=== PATIENT | female | born 1985 | race Caucasian/White ===

== ENCOUNTER 2020-08-15 07:55 | Inpatient (IN) ==
[2020-08-15] MEDS ORDERED: OXYTOCIN 30 UNITS/500 ML BAG IV PRN ×3 (08:06→23:12)
[2020-08-15 08:27] LABS: Hematocrit (blood only) 36.6 % (37-47); Hemoglobin 12.4 g/dL (12.0-16.0); Mean Corpuscular Hemoglobin 31.4 pg (25-34); Mean Corpuscular Hgb Conc 33.9 g/dL (32-36); Mean Corpuscular Volume 92.7 fL (80-100); Mean Platelet Volume 11.3 fL (7.4-10.4); Platelet Count 236 K/uL (130-400); RDW Coefficient of Variation 12.8 % (11.5-14.5); RDW Standard Deviation 43.3 fL (36.4-46.3); Red Blood Count 3.95 M/uL (4.2-5.4); White Blood Count 10.02 K/uL (4.8-10.8)
[2020-08-15] MEDS: LACTATED RINGER'S 1,000 ML IV PRN ×3 (09:25→18:34)
--- NOTE | 2020-08-15 09:43 | History & Physical Report ---
Date of Service August 15, 2020 Assessment & Plan (1) : 34 y/o at 40 2/7 wga presenting for post-EDC IOL Initial bp slightly elevated but pt is very anxious. Denies s/s PET. Will continue to monitor Fetus cat 1 Labor - boykin bulb was removed on admission, will start pitocin. Plan arom when able GBS neg Epidural PRN COVID neg Admission and Anticipated Discharge Date Admission Date: August 15, 2020 History of Present Illness Chief Complaint: IOL Primary Care Provider: NO PCP 34 y/o at 40 2/7 wga w/ JEROME 08/13 by LMP 11/06 who presents for post-EDC IOL. +FM and irreg non-painful ctx, denies LOF. Small amount of bloody discharge from boykin bulb PNI: AMA Past [employer] Hx: G1 2018 SAB G2 current Menarche 11, q28d cycles Last pap 2019 neg cotest Denies hx STIs Allergies Allergy/AdvReac Type Severity Reaction Status Date / Time No Known Allergies Allergy Verified 08/14/20 11:53 Home Medications Medication Instructions Recorded Confirmed Type prenat.vits,joe,[id number] 1 tab PO DAILY 12/01/18 08/15/20 History loratadine 10 mg tablet 10 mg PO DAILY 07/30/20 08/15/20 History Patient History Medical History Anxiety Status post hysteroscopy Surgical History H/O oral surgery Hx of LASIK Family History Mother Kidney disease Diabetes Sister Kidney disease Denies family history of Ovarian cancer Breast cancer Colorectal cancer Social History Smoking Status: Never smoker Hx Alcohol Use: No Hx Substance Use: No Preferred Language: Cypriot Communication Ability: Effective Circuit Judge Required: No Beliefs That Will Affect Care: None marital status: marital status details: mary anne (38) [phone] Current Living Situation: Spouse Current Living Situation Comment: lives with spouse, no pets. current occupational status: employed current occupation: Professor @ [employer] Other Information That Helps Us Care for You: No Feels Safe at Home: Yes Safety Concerns: Feels Safe At This Time Assistive Devices: None Physical Exam Constitutional: WD/WN, vitals as above Respiratory: normal respiratory effort; no respiratory distress and no labored breathing Psychiatric: A+Ox3, euthymic affect Genitourinary: OB Exam Abdomen: + vertex and + estimated weight (8-9lb) Manual OB Exam: + cervical dilation (3-4cm), + cervical effacement 50% and + station -2 OB Exam Monitor Tracing: + external FHT monitor used, + external uterine monitor used (q6min) and + category I (125/mod/+accel/-decel) Results & Data ([facility]) Vital Signs (Past 12 Hours) Vital Signs Temp Pulse Resp BP 08/15/20 07:55 98.1 F 103 H 20 140/81 Laboratory Results OB Labs: Blood Type O Positive 01/03/20 Antibody Screen NEGATIVE 01/03/20 Hemoglobin 11.9 g/dL (12.0-16.0) L 05/24/20 Hematocrit 34.7 % (37-47) L 05/24/20 Mean Corpuscular Volume 92.5 fL (80-100) 01/03/20 Platelet Count 252 K/uL (130-400) 01/03/20 Rubella IgG Antibody Immune (Immune) 01/03/20 Rapid Plasma Reagin Nonreactive (Nonreactive) 01/03/20 Hepatitis B Surface Antigen Neg (Neg) 01/03/20 HIV (1&2) Ab and P24 Ag, 4th Gener Neg (Neg) 01/03/20 Glucose 1 Hour 50 gm Load 92 mg/dl (70-130) 05/24/20 Maternal Serum Alpha Fetoprotein 19.0 ng/mL 02/26/20 OB Optional Labs: Chlamydia trachomatis RNA NOT DETECTED (NOT DETECTED) 01/03/20 Neisseria gonorrhoeae RNA NOT DETECTED (NOT DETECTED) 01/03/20 Alpha Fetoprotein Triple Screen SEE NOTE 02/26/20 Labs Reviewed: CF/SMA negative 08/25/19 HK ([facility]) cfdna low risk afp neg GBS neg Diagnostic Findings Anterior placenta Code Status & VTE Plan VTE Prophylaxis Plan VTE Prophylaxis will be ordered: No Coding Level of Care Code None Diagnoses Z34.90
--- NOTE | 2020-08-15 13:41 | Labor Progress Brief Note ---
Date of Service August 15, 2020 Subjective Feeling ctx more, uncomfortable but not overly painful Assessment & Plan (1) : 34 y/o at 40 2/7 wga presenting for post-EDC IOL VSS, BPs wnl Fetus cat 1 Labor - pit at 13, now s/p arom. Continue augmentation GBS neg Epidural PRN Admission and Anticipated Discharge Date Admission Date: August 15, 2020 Physical Exam Constitutional: WD/WN, vitals as above Respiratory: normal respiratory effort; no respiratory distress and no labored breathing Psychiatric: A+Ox3, euthymic affect Genitourinary: Manual OB Exam: + cervical dilation (4-5cm), + cervical effacement 60% and + station -2 OB Exam Monitor Tracing: + external FHT monitor used, + external uterine monitor used (q2-5min) and + category I (125/mod/+accel/-decel) Results & Data ([facility]) Vital Signs (Past 12 Hours) Vital Signs Temp Pulse Pulse Resp BP BP 08/15/20 12:52 67 20 130/85 08/15/20 11:53 96.8 F L 83 20 116/57 L 08/15/20 10:40 81 129/82 08/15/20 10:26 78 16 129/85 08/15/20 10:10 86 135/87 08/15/20 09:56 75 20 127/79 08/15/20 09:39 88 128/86 08/15/20 07:55 98.1 F 103 H 20 140/81 Coding Level of Care Code None Diagnoses Z34.90
[2020-08-15] MEDS ORDERED: SODIUM CHLORIDE 0.9% INJ 10 ML VIAL ONE (14:38)
[2020-08-15] MEDS ORDERED: ePHEDrine sulfate 50 MG/ML AMP ONE (14:38)
[2020-08-15] MEDS ORDERED: fentaNYL citrate 100 MCG/2 ML VIAL ONE (14:38)
[2020-08-15] MEDS ORDERED: fentaNYL 2MCG/ML ROPIVACAINE 1.25MG/ML 100 ML BAG EPI ONE (14:39)
[2020-08-15] MEDS: BUPIVACAINE 0.25% 30 ML VIAL ONE ×2 (15:12→15:28)
--- NOTE | 2020-08-15 15:26 | Anesthesiology Consultation ---
Date of Service August 15, 2020 Assessment & Plan Chart Review Chart Review: Acceptable Risk for Labor Epidural Consults Requested none History Height/Weight Height: 5 ft 6 in Weight: 111.385 kg Allergies Allergy/AdvReac Type Severity Reaction Status Date / Time No Known Allergies Allergy Verified 08/14/20 11:53 Medications Home Medications Medication Instructions Recorded Confirmed Last Taken prenat.vits,joe,mef-[id number]-fabvx 1 tab PO DAILY 12/01/18 08/15/20 08/15/20 07:00 loratadine 10 mg tablet 10 mg PO DAILY 07/30/20 08/15/20 08/14/20 08:00 Active Medications Generic Name Dose Route Start Last Admin Trade Name Freq PRN Reason Stop Dose Admin Lactated Ringer's 1,000 mls @ 125 mls/hr 08/15/20 08:06 08/15/20 14:55 Lr IV 08/17/20 08:05 999 mls/hr .Q8H PRN Administration L&D Protocol Protocol Oxytocin 30 units in 500 mls @ 13 mls/hr 08/15/20 08:08 08/15/20 13:00 Pitocin IV 08/17/20 08:07 0.78 units/hr .Q24H PRN 13 mls/hr Labor Induction/Augmentation Titration Protocol 0.78 UNITS/HR Past Medical History Medical History Anxiety Status post hysteroscopy Past Family History Family History Mother Kidney disease Diabetes Sister Kidney disease Denies family history of Ovarian cancer Breast cancer Colorectal cancer Past Surgical History Surgical History H/O oral surgery Hx of LASIK Social History Smoking Status: Never smoker Hx Alcohol Use: No Hx Substance Use: No substance use type: does not use Physical Exam Vital Signs Last Vital Signs Temp 36.6 C 08/15/20 14:21 Pulse 67 08/15/20 15:23 Resp 20 08/15/20 14:21 BP 122/67 08/15/20 15:23 Pulse Ox 98 08/15/20 15:21 Testing Laboratory Results 08/15/20 08:13
[2020-08-15] MEDS ORDERED: NALOXONE HCL 1 MG in SODIUM CHLORIDE 0.9% 1000ML 1,000 ML IV PRN (15:27)
[2020-08-15] MEDS ORDERED: fentaNYL 2MCG/ML ROPIVACAINE 1.25MG/ML 100 ML BAG EPI PRN (15:27)
[2020-08-15] MEDS ORDERED: diphenhydrAMINE 50 MG/ML VIAL IV PRN (15:27)
[2020-08-15] MEDS ORDERED: ePHEDrine sulfate 50 MG/ML AMP IV PRN (15:27)
[2020-08-15] MEDS ORDERED: NALOXONE HCL 0.4 MG/1 ML VIAL/CARP IV PRN (15:27)
--- NOTE | 2020-08-15 17:08 | Labor Progress Brief Note ---
Date of Service August 15, 2020 Subjective Comfortable with epidural, still somewhat painful in window Assessment & Plan (1) : 34 y/o at 40 2/7 wga presenting for post-EDC IOL VSS, BPs overall wnl except after arom and just now with window and very uncomfortable. If persistent elevations, will order labs Fetus cat 1 Labor - pit at 13, good progression since arom. GBS neg Epidural in place Admission and Anticipated Discharge Date Admission Date: August 15, 2020 Physical Exam Genitourinary: Manual OB Exam: + cervical dilation 5 cm, + cervical effacement 90% and + station -1 OB Exam Monitor Tracing: + external FHT monitor used, + external uterine monitor used (q2-4min) and + category I (115/mod/+accel/-decel) Results & Data ([facility]) Vital Signs (Past 12 Hours) Vital Signs Temp Pulse Pulse Resp BP BP Pulse Ox 08/15/20 17:03 96 H 93 08/15/20 17:01 84 98 08/15/20 17:00 84 140/88 08/15/20 16:56 71 99 08/15/20 16:51 68 99 08/15/20 16:46 79 99 08/15/20 16:44 73 128/77 08/15/20 16:41 75 97 08/15/20 16:36 66 97 08/15/20 16:31 66 98 08/15/20 16:30 68 126/80 08/15/20 16:26 68 97 08/15/20 16:21 68 98 08/15/20 16:16 67 99 08/15/20 16:14 69 117/71 08/15/20 16:11 73 99 08/15/20 16:06 83 100 08/15/20 16:01 63 99 08/15/20 15:59 64 112/62 08/15/20 15:56 72 98 08/15/20 15:51 69 99 08/15/20 15:46 72 99 08/15/20 15:44 97.5 F L 68 16 114/57 L 08/15/20 15:41 82 98 08/15/20 15:36 74 99 08/15/20 15:31 81 99 08/15/20 15:27 72 121/71 08/15/20 15:26 79 98 08/15/20 15:25 68 123/67 08/15/20 15:23 67 122/67 08/15/20 15:21 66 122/69 98 08/15/20 15:19 69 122/65 08/15/20 15:17 65 121/62 08/15/20 15:16 61 98 08/15/20 15:11 79 100 08/15/20 15:06 81 100 08/15/20 15:01 75 98 08/15/20 14:21 97.9 F 20 08/15/20 13:52 96 H 140/89 08/15/20 12:52 67 20 130/85 08/15/20 11:53 96.8 F L 83 20 116/57 L 08/15/20 10:40 81 129/82 08/15/20 10:26 78 16 129/85 08/15/20 10:10 86 24 135/87 08/15/20 09:56 75 20 127/79 08/15/20 09:39 88 128/86 08/15/20 07:55 98.1 F 103 H 20 140/81 Coding Level of Care Code None Diagnoses Z34.90
--- NOTE | 2020-08-15 19:54 | Labor Progress Brief Note ---
Date of Service August 15, 2020 Subjective Overall comfortable w/ epidural, still w/ window but tolerable Assessment & Plan (1) : 34 y/o at 40 2/7 wga presenting for post-EDC IOL VSS, BPs stabilized Fetus cat 1 Labor - pit at 13, will reposition to get lip to go away, recheck in about an hour. GBS neg Epidural in place Admission and Anticipated Discharge Date Admission Date: August 15, 2020 Physical Exam Genitourinary: Manual OB Exam: + cervical dilation 9 cm, + cervical effacement 90% and + station + 1 OB Exam Monitor Tracing: + external FHT monitor used, + external uterine monitor used (q2-4min) and + category I (115/mod/+accel/-decel) Results & Data ([facility]) Vital Signs (Past 12 Hours) Vital Signs Temp Pulse Pulse Resp BP BP Pulse Ox 08/15/20 19:46 88 100 08/15/20 19:42 76 135/81 08/15/20 19:41 79 99 08/15/20 19:36 79 99 08/15/20 19:31 76 99 08/15/20 19:30 18 08/15/20 19:28 69 137/78 08/15/20 19:26 82 99 08/15/20 19:21 73 100 08/15/20 19:16 84 99 08/15/20 19:13 73 134/70 08/15/20 19:11 78 99 08/15/20 19:07 97.7 F 18 08/15/20 19:06 79 100 08/15/20 19:05 97.7 F 18 08/15/20 19:01 74 100 08/15/20 18:59 75 131/78 08/15/20 18:56 73 99 08/15/20 18:51 69 100 08/15/20 18:46 83 100 08/15/20 18:43 68 129/80 08/15/20 18:41 71 100 08/15/20 18:36 70 100 08/15/20 18:31 77 99 08/15/20 18:28 69 134/76 08/15/20 18:26 71 100 08/15/20 18:21 68 99 08/15/20 18:16 63 99 08/15/20 18:14 62 129/75 08/15/20 18:11 67 99 08/15/20 18:06 64 99 08/15/20 18:01 71 99 08/15/20 17:59 97.9 F 65 20 129/74 08/15/20 17:56 76 99 08/15/20 17:51 78 100 08/15/20 17:46 61 98 08/15/20 17:43 63 127/77 08/15/20 17:41 66 99 08/15/20 17:36 78 99 08/15/20 17:31 70 99 08/15/20 17:29 63 125/72 08/15/20 17:26 65 99 08/15/20 17:21 64 99 08/15/20 17:16 70 99 08/15/20 17:14 69 126/68 08/15/20 17:11 71 99 08/15/20 17:06 67 100 08/15/20 17:03 96 H 93 08/15/20 17:01 84 98 08/15/20 17:00 84 140/88 08/15/20 16:56 71 99 08/15/20 16:51 68 99 08/15/20 16:46 79 99 08/15/20 16:44 73 128/77 08/15/20 16:41 75 97 08/15/20 16:36 66 97 08/15/20 16:31 66 98 08/15/20 16:30 68 126/80 08/15/20 16:26 68 97 08/15/20 16:21 68 98 08/15/20 16:16 67 99 08/15/20 16:14 69 117/71 08/15/20 16:11 73 99 08/15/20 16:06 83 100 08/15/20 16:01 63 99 08/15/20 15:59 64 112/62 08/15/20 15:56 72 98 08/15/20 15:51 69 99 08/15/20 15:46 72 99 08/15/20 15:44 97.5 F L 68 16 114/57 L 08/15/20 15:41 82 98 08/15/20 15:36 74 99 08/15/20 15:31 81 99 08/15/20 15:27 72 121/71 08/15/20 15:26 79 98 08/15/20 15:25 68 123/67 08/15/20 15:23 67 122/67 08/15/20 15:21 66 122/69 98 08/15/20 15:19 69 122/65 08/15/20 15:17 65 121/62 08/15/20 15:16 61 98 08/15/20 15:11 79 100 08/15/20 15:06 81 100 08/15/20 15:01 75 98 08/15/20 14:21 97.9 F 20 08/15/20 13:52 96 H 140/89 08/15/20 12:52 67 20 130/85 08/15/20 11:53 96.8 F L 83 20 116/57 L 08/15/20 10:40 81 129/82 08/15/20 10:26 78 16 129/85 08/15/20 10:10 86 24 135/87 08/15/20 09:56 75 20 127/79 08/15/20 09:39 88 128/86 08/15/20 07:55 98.1 F 103 H 20 140/81 Coding Level of Care Code None Diagnoses Z34.90
--- NOTE | 2020-08-15 22:49 | Delivery Summary ---
Vaginal Delivery Summary Date of Service August 15, 2020 PREOPERATIVE DIAGNOSIS: 1. Single intrauterine at 40 2/7 2. Post-EDC IOL 3. AMA POSTOPERATIVE DIAGNOSIS: 1. Single intrauterine at 40 2/7 2. Post-EDC IOL 3. AMA 4. Shoulder dystocia 5. Delivered PROCEDURE: 1. Normal spontaneous vaginal delivery. SURGEON: Raven Regan MD ANESTHESIA: Epidural. ESTIMATED BLOOD LOSS: 300 mL FLUIDS: Continuous LR. URINE OUTPUT: None. COMPLICATIONS: Shoulder dystocia CONDITION: Stable. INDICATIONS: 34 y/o at 40 2/7 wga presented for post-EDC IOL this morning. Induction was begun with boykin bulb placement last evening and removed this morning. Upon removal, she was found to be 3-4 cm. Induction was begun with oxytocin. She underwent artificial rupture of membranes following titration. She received an epidural for pain control. She then progressed to complete and desired to push. FINDINGS: A viable female weight pending with Apgars of 7 and 9 at 1 and 5 minutes respectively. SPECIMEN: Cord blood, cord gases. OPERATIVE REPORT: The patient progressed to 10 cm, 100% effaced and +2 station, pushed over intact perineum with anesthesia to deliver a viable female infant, weight and Apgars as above. Head of delivered in SHARLENE position however eventually restituted into JIMI. Tight nuchal cord was present and could not be easily reduced. Gentle traction did not deliver the anterior shoulder and so shoulder dystocia was called. The head of bed was lowered and the patient was placed in McRobert's position. Suprapubic pressure was then performed by nursing to allow delivery of the anterior shoulder with gentle traction. Posterior shoulder then delivered easily. Remainder of torso was delivered with further maternal expulsive efforts. Due to need for multiple pushes to complete delivery of torso, dystocia time was marked as two minutes however part of that included delivery of the remainder of the body. was delivered to maternal abdomen and nursing staff. Delayed cord clamping was performed for 60 seconds. Cord was clamped and cut. Cord segment and blood were obtained. Placenta delivered spontaneously intact with 3-vessel cord. IV oxytocin and fundal massage were given for excellent hemostasis. Vagina, cervix, perineum, and placenta were inspected. A small vaginal laceration was noted and repaired in the usual fashion using 3-[address]-1. A hemostatic upper left labial laceration was noted and so did not needed to be repaired. Sponge and needle counts correct x2. No sponges were left behind. Mother and stable in immediate period. The patient and her were debriefed regarding the shoulder dystocia. Vaginal Delivery Summary (Vaginal laceration) [facility] [place] Vaginal Delivery Codes: 63095 global code for the antepartum, delivery, and post- Delivery Type Details: (Vaginal laceration)
[2020-08-15] MEDS ORDERED: SUPERCREAM 0.870% 15 GM JAR EXT PRN (23:12)
[2020-08-15] MEDS ORDERED: DIPHTHERIA/TETANUS/PERTUSSIS 0.5 ML SYR/VIAL IM ONE (23:12)
[2020-08-15] MEDS ORDERED: BENZOCAINE 20% AER SPR 82.5 GM CAN EXT PRN (23:12)
[2020-08-15] MEDS ORDERED: ACETAMINOPHEN 325 MG TAB PO PRN (23:12)
[2020-08-15] MEDS ORDERED: bisacodyL 10 MG SUPP PR PRN (23:12)
[2020-08-15] MEDS ORDERED: HYDROCORTISONE ACETATE 25 MG SUPP PR PRN (23:12)
[2020-08-15 23:23] LABS: Base Excess Cord Venous Blood -5.9 mEq/L (-7.7-1.9); Cord Venous Blood HCO3 20 mmol/L (18.4-26.8); Cord Venous Blood PCO2 38 mmHg (30.4-57.2); Cord Venous Blood PO2 35 mmHg (14.1-43.3); Cord Venous Blood pH 7.33 (7.20-7.44)
[2020-08-15] MEDS: IBUPROFEN 600 MG TAB PO PRN (23:26)
[2020-08-15 23:27] LABS: Base Excess Cord Arterial Bld -7.7 mEq/L (-9-1.8); CO2 Cord Arterial Blood 68 mmHg (39.1-73.5); HCO3 Cord Arterial Blood 23 mmol/L (19.7-28.5); Oxygen Sat Cord Arterial Blood < 60.0 % (<60); PO2 Cord Arterial Blood 21 mmHg (4.1-31.7); pH Cord Arterial Blood 7.14 (7.1-7.38)
--- NOTE | 2020-08-16 05:50 | Obstetrical Progress Note ---
Date of Service <Immanuel Sierra MD - Last Filed: 08/16/20 06:44> August 16, 2020 Assessment & Plan <Immanuel Sierra MD - Last Filed: 08/16/20 06:44> (1) : - PNL: Rh pos, RI, GBS neg, COVID neg - Feels well today. Eating well, voiding well, ambulating well - Pain well controlled with ibuprofen 600mg Q4H PRN - Routine care -- OOB, ambulation, diet progression as tolerated - After discharge will have 6 week follow-up with Dr. Regan Subjective <Immanuel Sierra MD - Last Filed: 08/16/20 06:44> Zahra is a 34 y/o female who is PPD #1 following at 40 2/7 weeks. She reports feeling well overall this morning. Light abdominal cramping and 2/10 pain well managed on analgesics. Voiding well. Tolerating meals overnight without difficulty. Patient has been able to ambulate some. Is passing gas, no bowel movement. Has persistent lochia with some improvement this morning. Currently without issues. Review of Systems Denies fever or chills. Denies shortness of breath or cough. Denies chest pain. Denies breast pain. Denies dysuria. Denies leg pain or leg swelling. Denies headache or changes in vision. Physical Exam <Immanuel Sierra MD - Last Filed: 08/16/20 06:44> General: Alert, oriented. No acute distress. Cardiac: Regular rate and rhythm. No murmurs. Respiratory: Clear to auscultation bilaterally a/p, no wheezes/rales/rhonchi. No increased work of breathing. Symmetrical chest rise. No respiratory distress. Abdomen: Soft, nontender, nondistended. Bowel sounds present. Uterus: Uterine fundus firm, palpable at umbilicus. Lower Extremities: No lower extremity edema or swelling. No deep calf pain. Shira's negative bilaterally. Results & Data ([facility]) <Immanuel Sierra MD - Last Filed: 08/16/20 06:44> Vital Signs (Past 12 Hours) Vital Signs Temp Pulse Pulse Resp BP BP Pulse Ox 08/16/20 03:50 36.9 C 76 18 127/74 96 08/16/20 01:30 37.1 C 83 18 125/71 96 08/16/20 00:39 80 125/69 08/16/20 00:35 18 08/16/20 00:24 81 133/69 08/16/20 00:09 75 131/71 08/16/20 00:05 18 08/15/20 23:54 86 128/78 08/15/20 23:39 76 133/64 08/15/20 23:35 18 08/15/20 23:24 78 130/58 L 08/15/20 23:20 86 18 128/78 08/15/20 23:09 83 132/60 08/15/20 23:05 18 08/15/20 22:55 89 141/66 H 08/15/20 22:50 18 08/15/20 22:39 94 H 137/71 08/15/20 22:35 36.5 C 18 08/15/20 22:31 98 H 99 08/15/20 22:28 88 130/69 08/15/20 22:26 88 100 08/15/20 22:23 96 H 93 08/15/20 22:21 93 H 99 08/15/20 22:16 110 H 99 08/15/20 22:11 137 H 100 08/15/20 22:06 118 H 99 08/15/20 22:01 102 H 99 08/15/20 21:56 114 H 100 08/15/20 21:51 103 H 100 08/15/20 21:46 99 H 100 08/15/20 21:41 91 H 100 08/15/20 21:36 95 H 100 08/15/20 21:31 84 100 08/15/20 21:29 88 140/74 08/15/20 21:26 93 H 100 08/15/20 21:21 87 100 08/15/20 21:16 83 100 08/15/20 21:15 18 08/15/20 21:11 84 98 08/15/20 21:06 80 98 08/15/20 21:01 98 H 99 08/15/20 21:00 20 08/15/20 20:58 93 H 143/87 H 08/15/20 20:56 104 H 98 08/15/20 20:51 93 H 99 08/15/20 20:46 100 H 99 08/15/20 20:45 36.5 C 18 08/15/20 20:42 82 141/84 H 08/15/20 20:41 92 H 97 08/15/20 20:36 99 H 98 08/15/20 20:31 99 H 99 08/15/20 20:30 18 08/15/20 20:28 94 H 140/82 08/15/20 20:26 90 99 08/15/20 20:21 97 H 100 08/15/20 20:16 95 H 99 08/15/20 20:14 100 H 147/88 H 08/15/20 20:11 96 H 99 08/15/20 20:06 89 99 08/15/20 20:01 85 99 08/15/20 20:00 18 08/15/20 19:58 85 144/87 H 08/15/20 19:56 84 100 08/15/20 19:51 96 H 100 08/15/20 19:46 88 100 08/15/20 19:42 76 135/81 08/15/20 19:41 79 99 08/15/20 19:36 79 99 08/15/20 19:31 76 99 08/15/20 19:30 18 08/15/20 19:28 69 137/78 08/15/20 19:26 82 99 08/15/20 19:21 73 100 08/15/20 19:16 84 99 08/15/20 19:13 73 134/70 08/15/20 19:11 78 99 08/15/20 19:07 36.5 C 18 08/15/20 19:06 79 100 08/15/20 19:05 36.5 C 18 08/15/20 19:01 74 100 08/15/20 18:59 75 131/78 08/15/20 18:56 73 99 08/15/20 18:51 69 100 08/15/20 18:46 83 100 08/15/20 18:43 68 129/80 08/15/20 18:41 71 100 08/15/20 18:36 70 100 08/15/20 18:31 77 99 08/15/20 18:28 69 134/76 08/15/20 18:26 71 100 08/15/20 18:21 68 99 08/15/20 18:16 63 99 08/15/20 18:14 62 129/75 08/15/20 18:11 67 99 08/15/20 18:06 64 99 08/15/20 18:01 71 99 08/15/20 17:59 36.6 C 65 20 129/74 08/15/20 17:56 76 99 08/15/20 17:51 78 100 <Raven Regan MD - Last Filed: 08/16/20 07:26> Co-Signing Physician Notes Resident Physician Supervision Note: I interviewed and examined the patient. Discussed with Dr. De Paz and agree with findings and plan as documented in the note. Any exceptions or clarifications are listed here: PP1, doing well meeting milestones. Had some mild range BPs yesterday when very uncomfortable and during pushing, but not persistent. Normal since delivery, will continue to monitor. Exam benign and wnl. Continue routine pp care Documented By: Raven Regan MD Resident Activity Tracking <Immanuel Sierra MD - Last Filed: 08/16/20 06:44> Resident Involvement: Resident Care Provided Care Provided: OB Delivery
[2020-08-16] MEDS: IBUPROFEN 600 MG TAB PO PRN ×3 (06:01→21:13)
[2020-08-16 06:19] LABS: Hematocrit (blood only) 35.8 % (37-47); Hemoglobin 12.2 g/dL (12.0-16.0); Mean Corpuscular Hemoglobin 31.9 pg (25-34); Mean Corpuscular Hgb Conc 34.1 g/dL (32-36); Mean Corpuscular Volume 93.7 fL (80-100); Mean Platelet Volume 11.3 fL (7.4-10.4); Platelet Count 250 K/uL (130-400); RDW Coefficient of Variation 12.9 % (11.5-14.5); RDW Standard Deviation 44.2 fL (36.4-46.3); Red Blood Count 3.82 M/uL (4.2-5.4); White Blood Count 16.82 K/uL (4.8-10.8)
[2020-08-16] MEDS: DOCUSATE SODIUM 100 MG CAP PO SCH ×2 (08:56→21:13)
[2020-08-16] MEDS: PRENATAL VITAMIN 1 TAB PO SCH (08:56)
--- NOTE | 2020-08-16 09:11 | Anesthesiology Progress Note ---
Date of Service August 16, 2020 Anesthesia Post Procedure Vital Signs Vital Signs: Temp Pulse Pulse Resp BP BP Pulse Ox 08/16/20 03:50 36.9 C 76 18 127/74 96 08/16/20 01:30 37.1 C 83 18 125/71 96 08/16/20 00:39 80 125/69 08/16/20 00:35 18 08/16/20 00:24 81 133/69 08/16/20 00:09 75 131/71 08/16/20 00:05 18 08/15/20 23:54 86 128/78 08/15/20 23:39 76 133/64 08/15/20 23:35 18 08/15/20 23:24 78 130/58 L 08/15/20 23:20 86 18 128/78 08/15/20 23:09 83 132/60 08/15/20 23:05 18 08/15/20 22:55 89 141/66 H 08/15/20 22:50 18 08/15/20 22:39 94 H 137/71 08/15/20 22:35 36.5 C 18 08/15/20 22:31 98 H 99 08/15/20 22:28 88 130/69 08/15/20 22:26 88 100 08/15/20 22:23 96 H 93 08/15/20 22:21 93 H 99 08/15/20 22:16 110 H 99 08/15/20 22:11 137 H 100 08/15/20 22:06 118 H 99 08/15/20 22:01 102 H 99 08/15/20 21:56 114 H 100 08/15/20 21:51 103 H 100 08/15/20 21:46 99 H 100 08/15/20 21:41 91 H 100 08/15/20 21:36 95 H 100 08/15/20 21:31 84 100 08/15/20 21:29 88 140/74 08/15/20 21:26 93 H 100 08/15/20 21:21 87 100 08/15/20 21:16 83 100 08/15/20 21:15 18 08/15/20 21:11 84 98 08/15/20 21:06 80 98 08/15/20 21:01 98 H 99 08/15/20 21:00 20 08/15/20 20:58 93 H 143/87 H 08/15/20 20:56 104 H 98 08/15/20 20:51 93 H 99 08/15/20 20:46 100 H 99 08/15/20 20:45 36.5 C 18 08/15/20 20:42 82 141/84 H 08/15/20 20:41 92 H 97 08/15/20 20:36 99 H 98 08/15/20 20:31 99 H 99 08/15/20 20:30 18 08/15/20 20:28 94 H 140/82 08/15/20 20:26 90 99 08/15/20 20:21 97 H 100 08/15/20 20:16 95 H 99 08/15/20 20:14 100 H 147/88 H 08/15/20 20:11 96 H 99 08/15/20 20:06 89 99 08/15/20 20:01 85 99 08/15/20 20:00 18 08/15/20 19:58 85 144/87 H 08/15/20 19:56 84 100 08/15/20 19:51 96 H 100 08/15/20 19:46 88 100 08/15/20 19:42 76 135/81 08/15/20 19:41 79 99 08/15/20 19:36 79 99 08/15/20 19:31 76 99 08/15/20 19:30 18 08/15/20 19:28 69 137/78 08/15/20 19:26 82 99 08/15/20 19:21 73 100 08/15/20 19:16 84 99 08/15/20 19:13 73 134/70 08/15/20 19:11 78 99 08/15/20 19:07 36.5 C 18 08/15/20 19:06 79 100 08/15/20 19:05 36.5 C 18 08/15/20 19:01 74 100 08/15/20 18:59 75 131/78 08/15/20 18:56 73 99 08/15/20 18:51 69 100 08/15/20 18:46 83 100 08/15/20 18:43 68 129/80 08/15/20 18:41 71 100 08/15/20 18:36 70 100 08/15/20 18:31 77 99 08/15/20 18:28 69 134/76 08/15/20 18:26 71 100 08/15/20 18:21 68 99 08/15/20 18:16 63 99 08/15/20 18:14 62 129/75 08/15/20 18:11 67 99 08/15/20 18:06 64 99 08/15/20 18:01 71 99 08/15/20 17:59 36.6 C 65 20 129/74 08/15/20 17:56 76 99 08/15/20 17:51 78 100 08/15/20 17:46 61 98 08/15/20 17:43 63 127/77 08/15/20 17:41 66 99 08/15/20 17:36 78 99 08/15/20 17:31 70 99 08/15/20 17:29 63 125/72 08/15/20 17:26 65 99 08/15/20 17:21 64 99 08/15/20 17:16 70 99 08/15/20 17:14 69 126/68 08/15/20 17:11 71 99 08/15/20 17:06 67 100 08/15/20 17:03 96 H 93 08/15/20 17:01 84 98 08/15/20 17:00 84 140/88 08/15/20 16:56 71 99 08/15/20 16:51 68 99 08/15/20 16:46 79 99 08/15/20 16:44 73 128/77 08/15/20 16:41 75 97 08/15/20 16:36 66 97 08/15/20 16:31 66 98 08/15/20 16:30 68 126/80 08/15/20 16:26 68 97 08/15/20 16:21 68 98 08/15/20 16:16 67 99 08/15/20 16:14 69 117/71 08/15/20 16:11 73 99 08/15/20 16:06 83 100 08/15/20 16:01 63 99 08/15/20 15:59 64 112/62 08/15/20 15:56 72 98 08/15/20 15:51 69 99 08/15/20 15:46 72 99 08/15/20 15:44 36.4 C L 68 16 114/57 L 08/15/20 15:41 82 98 06/10/21 15:36 74 99 08/15/20 15:31 81 99 08/15/20 15:27 72 121/71 08/15/20 15:26 79 98 08/15/20 15:25 68 123/67 08/15/20 15:23 67 122/67 08/15/20 15:21 66 122/69 98 08/15/20 15:19 69 122/65 08/15/20 15:17 65 121/62 08/15/20 15:16 61 98 08/15/20 15:11 79 100 08/15/20 15:06 81 100 08/15/20 15:01 75 98 08/15/20 14:21 36.6 C 20 08/15/20 13:52 96 H 140/89 08/15/20 12:52 67 20 130/85 08/15/20 11:53 36 C L 83 20 116/57 L 08/15/20 10:40 81 129/82 08/15/20 10:26 78 16 129/85 08/15/20 10:10 86 24 135/87 08/15/20 09:56 75 20 127/79 08/15/20 09:39 88 128/86 Pain Intensity Abdomen: Pain Intensity: 2 Transfer of Care Handoff Completed per policy Notes Mental Status: alert / awake / arousable and participated in evaluation Patient Amnestic to Procedure: Yes Nausea / Vomiting: adequately controlled Pain: adequately controlled Airway Patency, RR, SpO2: stable & adequate BP & HR: stable & adequate Hydration State: stable & adequate Anesthetic Complications: no major complications apparent and Pt Satisfied with anesthetic care
[2020-08-16] MEDS ORDERED: bisacodyL 5 MG TABEC PO SCH (20:00)
[2020-08-17] MEDS: IBUPROFEN 600 MG TAB PO PRN ×2 (05:03→08:40)
--- NOTE | 2020-08-17 06:46 | Obstetrical Progress Note ---
Date of Service <Immanuel Sierra MD - Last Filed: 08/17/20 07:37> August 17, 2020 Assessment & Plan <Immanuel Sierra MD - Last Filed: 08/17/20 07:37> (1) : - PNL: Rh pos, RI, GBS neg, COVID neg - Feels well today. Eating well, voiding well, ambulating well - Pain well controlled with ibuprofen 600mg Q4H PRN - Routine care -- OOB, ambulation, diet progression as tolerated - After discharge will have 6 week follow-up with Dr. Regan - Likely DC today Subjective <Immanuel Sierra MD - Last Filed: 08/17/20 07:37> Zahra is a 34 y/o female who is PPD #2 following at 40 2/7 weeks. She reports feeling well overall this morning. Mild abdominal cramping and 2/10 pain well managed on analgesics. Voiding well. Tolerating meals overnight without difficulty. Patient has been able to ambulate some. Has persistent lochia with some improvement this morning. Currently without issues. Review of Systems Denies fever or chills. Denies shortness of breath or cough. Denies chest pain. Denies breast pain. Denies dysuria. Denies leg pain or leg swelling. Denies headache or changes in vision. Physical Exam <Immanuel Sierra MD - Last Filed: 08/17/20 07:37> General: Alert, oriented. No acute distress. Cardiac: Regular rate and rhythm. No murmurs. Respiratory: Clear to auscultation bilaterally a/p, no wheezes/rales/rhonchi. No increased work of breathing. Symmetrical chest rise. No respiratory distress. Abdomen: Soft, nontender, nondistended. Bowel sounds present. Uterus: Uterine fundus firm, palpable at ~1cm below umbilicus. Lower Extremities: No lower extremity edema or swelling. No deep calf pain. Shira's negative bilaterally. Results & Data ([facility]) <Immanuel Sierra MD - Last Filed: 08/17/20 07:37> Vital Signs (Past 12 Hours) Vital Signs Temp Pulse Resp BP Pulse Ox 08/16/20 23:55 36.9 C 70 17 123/82 97 08/16/20 19:45 36.7 C 95 H 17 116/72 97 <Placido Galdamez MD - Last Filed: 08/17/20 08:32> Co-Signing Physician Notes Patient seen and evaluated and agree with the above findings and plan Resident Activity Tracking <Immanuel Sierra MD - Last Filed: 08/17/20 07:37> Resident Involvement: Resident Care Provided Care Provided: OB Delivery
[2020-08-17 06:49] LABS: Hematocrit (blood only) 32.6 % (37-47); Hemoglobin 11.1 g/dL (12.0-16.0)
[2020-08-17] MEDS: DOCUSATE SODIUM 100 MG CAP PO SCH (08:40)
[2020-08-17] MEDS: PRENATAL VITAMIN 1 TAB PO SCH (08:40)
== END 2020-08-17 11:15 | disposition home or self-care (01) | DRG 807 ==
LOC: 4S1 07:55 → 4S2 08-16 01:00